=== PATIENT | male | born 1990 | race Two or more races ===

== ENCOUNTER 2019-01-29 12:27 | Emergency (ER) | payer BC ==
[~2019-01-29] VITALS: Ht 177.8 cm; Wt 108.0 kg
--- NOTE | 2019-01-29 12:55 | NUR ---
PATIENT ARRIVED AT UNIT [facility]. A/O X 4. REPORTED HE WENT TO URGENT CARE FOR SOB X 4 DAYS,EKG SHOWED TACHYCARDIA AND HE WAS SENT HERE. PATIENT ACCOMPANIED TO BED 9, CONNECTED TO MONITOR.
[2019-01-29 12:57] LABS: BASOPHILS # (AUTO) 0.1 /CMM (0.0-0.2); EOSINOPHILS % (AUTO) 1.2 % (0.0-6.0); HEMATOCRIT 48 % (39-51); HEMOGLOBIN 16.1 g/dL (13.5-17.5); LYMPHOCYTES % (AUTO) 24.2 % (20.0-44.0); MEAN CORPUSCULAR HGB CONC 34 g/dl (31.0-36.0); MEAN CORPUSCULAR VOLUME 82 fL (80-96); MONOCYTES # (AUTO) 0.6 /CMM (0.1-1.30); MONOCYTES % (AUTO) 6.6 % (2.0-12.0); NEUTROPHILS # (AUTO) 5.6 /CMM (1.8-8.9); PLATELET COUNT (AUTO) 257 /CMM (150-450); RED BLOOD CELL COUNT(AUTO) 5.86 MIL/uL (4.5-6.0); WHITE BLOOD COUNT (AUTO) 8.4 K/uL (4.3-11.0)
[2019-01-29] MEDS ORDERED: METOPROLOL TARTRATE INJ 5 MG/5 ML AMPUL ONE (13:00)
[2019-01-29] MEDS ORDERED: METOPROLOL TARTRATE INJ 5 MG/5 ML AMPUL IV ONE (13:00)
--- NOTE | 2019-01-29 13:00 | NUR ---
IV LINE ESTABLISHED, BLOOD DRAWN AND SENT TO LAB
[2019-01-29 13:05] LABS: CARBON DIOXIDE 30 mmol/L (21-32); CHLORIDE 105 mmol/L (98-107); GLUCOSE 97 mg/dL (74-106); POTASSIUM 4.3 mmol/L (3.5-5.1); SODIUM SERUM 141 mmol/L (136-145); UREA NITROGEN, BLOOD 14 mg/dL (7-18)
[2019-01-29 13:10] LABS: ALANINE AMINOTRANSFERASE 71 U/L (12-78); ALBUMIN 3.9 g/dL (3.4-5.0); ALKALINE PHOSPHATASE 79 U/L (46-116); ASPARTATE AMINOTRANSFERASE 31 U/L (15-37); BILIRUBIN,DIRECT 0.3 mg/dL (0.0-0.2); BILIRUBIN,TOTAL 1.8 mg/dL (0.2-1.0); TOTAL PROTEIN, SERUM 7.4 g/dL (6.4-8.2)
--- NOTE | 2019-01-29 13:44 | NUR ---
IV removed. Catheter intact and site benign. Pressure and 4x4 applied to site. No bleeding noted.Patient discharged to home in stable condition. Written and verbal after care instructions given. Patient verbalizes understanding of instruction. Lab results and EKG copy provided to patient.
[2019-01-29 13:45] VITALS: BP 120/82
== END 2019-01-29 13:45 | disposition home or self-care (01) ==
LOC: ER 12:31
DX: R00.2 Palpitations (principal); R00.0 Tachycardia, unspecified; I10 Essential (primary) hypertension; F10.10 Alcohol abuse, uncomplicated; Y90.9 Presence of alcohol in blood, level not specified; Z60.2 Problems related to living alone; Z90.49 Acquired absence of other specified parts of digestive tract
CPT/HCPCS: 36415; 71045; 80048; 80076; 84443; 84484; 85025; 93005 ×3; 96374; 99284; J3490